=== PATIENT | female | born 1970 | race African-American/Black ===

== ENCOUNTER 2019-01-18 10:24 | Inpatient (IN) ==
[2019-01-18] MEDS ORDERED: METHOCARBAMOL 750 MG TABLET PO PRN (10:30)
[2019-01-18] MEDS ORDERED: LORazepam 2 MG/1 ML VIAL IV PRN (10:30)
[2019-01-18] MEDS ORDERED: DICYCLOMINE 10 MG CAPSULE PO PRN (10:30)
[2019-01-18] MEDS ORDERED: ACETAMINOPHEN 325 MG TABLET PO PRN (11:04)
[2019-01-18] MEDS ORDERED: ZALEPLON 5 MG CAPSULE PO PRN (11:04)
[2019-01-18] MEDS ORDERED: SODIUM CHLORIDE 0.9% 1,000 ML IV SCH (11:30)
[2019-01-18] MEDS: HEPARIN 5,000 UNIT/1 ML VIAL SUBCUT SCH ×2 (12:45→21:25)
[2019-01-18] MEDS: PANTOPRAZOLE 40 MG TABLET PO SCH (12:45)
[2019-01-18] MEDS: chlordiazePOXIDE 25 MG CAPSULE PO SCH ×3 (12:46→23:12)
[2019-01-18] MEDS: HydrOXYzine PAMOATE 25 MG CAPSULE PO PRN (12:46)
[2019-01-18] MEDS: DOCUSATE SODIUM 100 MG CAPSULE PO SCH ×2 (12:46→21:25)
[2019-01-18 12:51] LABS: Basophils % 0.5 % (0.0-0.8); Eosinophils % 0.4 % (0.00-10.9); Hematocrit 38.3 VOL% (35.7-47.0); Hemoglobin 12.5 GM/DL (12.0-16.0); Immature Granulocytes % 0.4 %; Immature Granulocytes Absolute 0.02 #; Lymphocytes # 1.5 10*3/uL (1.4-4.0); Lymphocytes % 25.8 % (21.3-54.2); Mean Corpuscular HGB Conc 32.6 GM/DL (32-36); Mean Corpuscular Volume 75.4 FL (87-102); Mean Platelet Volume 10.9 FL (9.6-12.0); Monocytes % 7.3 % (1.7-12.7); Neutrophils % 65.6 % (38.7-73.9); Platelet Count 335 T/CUMM (130-400); Red Blood Count 5.08 MC/CUMM (3.8-5.5); Red Cell Distribution Width 14.9 % (9.3-17.3); White Blood Count 5.7 T/CUMM (4-12)
[2019-01-18] MEDS ORDERED: THIAMINE INJ 100 MG, FOLIC ACID INJ 1 MG, MULTIVITAMIN INJ 10 ML in SODIUM CHLORIDE 0.9... IV ONE (13:00)
[2019-01-18 13:24] LABS: Alanine Aminotransferase 24 U/L (13-56); Albumin 3.7 G/DL (3.4-5.0); Alkaline Phosphatase 88 U/L (45-117); Aspartate Amino Transferase 37 U/L (0-37); Blood Urea Nitrogen 7 MG/DL (7-18); Calcium 9.1 MG/DL (8.5-10.1); Glucose 99 MG/DL (74-106); Osmolality,Calculated 267.1 MOS/KG (273-304)
[2019-01-18 13:32] LABS: Folate 11.5 NG/ML (5.4-24.0)
[2019-01-18] MEDS: hydrALAZINE 20 MG/1 ML VIAL IV PRN (13:43)
[2019-01-18] MEDS ORDERED: ALUM/MAG/SIMETH/LIDO VISC 1:1 30 ML BOTTLE PO ONE (13:52)
[2019-01-18 14:03] LABS: Hepatitis B Core IgM Quant 0.13 Index; Hepatitis B Surface Ag Quant < 0.10 Index; Hepatitis B Surface Ag Result Negative (Negative); Hepatitis C Virus Ab Result Negative (Negative)
[2019-01-18 14:12] LABS: Barbiturates Screen,Urine Negative (Negative); Benzodiazepines Screen,Urine Negative (Negative); Cannabinoid Screen,Urine Negative (Negative); Opiate Screen,Urine Negative (Negative); Phencyclidine Screen,Urine Negative (Negative)
[2019-01-18 14:15] LABS: Apearance,Urine CLEAR (Clear); Bacteria,Urine Occasional /HPF (Few); Bilirubin,Urine Negative (Negative); Blood, Urine Negative (Negative); Glucose,Urine (UA) Negative (Negative); Ketones,Urine Negative (Negative); Mucus,Urine Occasional /LPF (Occasional); Nitrite,Urine Negative (Negative); Protein,Urine Negative; RBC,Urine 2 /HPF (0-4); Squamous Epithelial Cell,Urine Occasional /HPF (0-10); Urine Color Straw (Yellow); Urine Specific Gravity 1.008 (1.001-1.035); Urine Urobilinogen < 2.0 EU/DL (0.2-1.0); WBC,Urine 4 /HPF (0-6)
[2019-01-18] MEDS ORDERED: CYANOCOBALAMIN 1000 MCG/1 ML VIAL IM ONE (15:00)
[2019-01-18] MEDS: cloNIDine 0.1 MG TABLET PO SCH ×2 (15:43→21:25)
[2019-01-18] MEDS: PHENYTOIN ER 100 MG CAPSULE PO SCH ×2 (15:47→21:25)
[2019-01-18] MEDS: CARVEDILOL 6.25 MG TABLET PO SCH (21:25)
[2019-01-19] MEDS: HEPARIN 5,000 UNIT/1 ML VIAL SUBCUT SCH ×3 (03:42→20:55)
[2019-01-19] MEDS: chlordiazePOXIDE 25 MG CAPSULE PO SCH ×3 (04:36→18:33)
[2019-01-19 05:47] LABS: Albumin 2.7 G/DL (3.4-5.0); Bilirubin,Total 1.3 MG/DL (0.2-1.0); Calcium 7.7 MG/DL (8.5-10.1); Osmolality,Calculated 281.1 MOS/KG (273-304); Total Protein 5.8 G/DL (6.4-8.3)
[2019-01-19] MEDS ORDERED: POTASSIUM CHLORIDE 20 MEQ TABLET PO ONE (07:45)
[2019-01-19] MEDS ORDERED: POTASSIUM CHLORIDE 20 MEQ TABLET PO PRN (08:10)
[2019-01-19] MEDS: cloNIDine 0.1 MG TABLET PO SCH ×2 (09:04→20:31)
[2019-01-19] MEDS: PHENYTOIN ER 100 MG CAPSULE PO SCH ×3 (09:04→20:31)
[2019-01-19] MEDS: LISINOPRIL 20 MG TABLET PO SCH (09:04)
[2019-01-19] MEDS: CARVEDILOL 6.25 MG TABLET PO SCH ×2 (09:04→20:31)
[2019-01-19] MEDS: DOCUSATE SODIUM 100 MG CAPSULE PO SCH ×2 (09:04→20:31)
[2019-01-19] MEDS: PANTOPRAZOLE 40 MG TABLET PO SCH (09:04)
[2019-01-19] MEDS: hydrALAZINE 20 MG/1 ML VIAL IV PRN (20:33)
[2019-01-20] MEDS: chlordiazePOXIDE 25 MG CAPSULE PO SCH ×3 (03:34→18:21)
[2019-01-20] MEDS: HydrOXYzine PAMOATE 25 MG CAPSULE PO PRN (04:39)
[2019-01-20] MEDS: HEPARIN 5,000 UNIT/1 ML VIAL SUBCUT SCH ×3 (04:41→21:34)
[2019-01-20] MEDS: DOCUSATE SODIUM 100 MG CAPSULE PO SCH ×2 (09:35→21:34)
[2019-01-20] MEDS: cloNIDine 0.1 MG TABLET PO SCH ×2 (09:35→21:34)
[2019-01-20] MEDS: PANTOPRAZOLE 40 MG TABLET PO SCH (09:35)
[2019-01-20] MEDS: PHENYTOIN ER 100 MG CAPSULE PO SCH ×3 (09:35→21:34)
[2019-01-20] MEDS: CARVEDILOL 6.25 MG TABLET PO SCH ×2 (09:35→21:34)
[2019-01-20] MEDS: LISINOPRIL 20 MG TABLET PO SCH (09:42)
[2019-01-20] MEDS ORDERED: SODIUM CHLORIDE 0.65% NASAL SPRAY 45 ML BOTTLE BOTH NARES PRN (16:48)
[2019-01-20] MEDS ORDERED: CETIRIZINE 10 MG TABLET PO SCH (17:00)
[2019-01-21] MEDS: chlordiazePOXIDE 25 MG CAPSULE PO SCH (03:28)
[2019-01-21] MEDS: HEPARIN 5,000 UNIT/1 ML VIAL SUBCUT SCH (03:28)
[2019-01-21 09:59] VITALS: BP 161/88
== END 2019-01-21 09:17 | disposition home or self-care (01) | DRG 772 ==
LOC: N.4E 10:54 → SUATTDRO 10:54
PROVIDERS: ADMIT Family Medicine; ATTEND Internal Medicine